=== PATIENT | female | born 1975 | race American Indian/Alaskan Native ===

== ENCOUNTER 2024-11-20 22:31 | Emergency (ER) | payer BC, OTHER ==
[~2024-11-20] VITALS: Ht 167.6 cm; Wt 184.0 kg
[~2024-11-20 22:31] MED LIST: ERGOCALCIF50000 UNIT PO; IBUPROFEN600 MG PO; NORCO 5-325 TA1 EACH PO; WELLBUTRIN XL300 MG PO; ZOLOFT100 MG PO
[2024-11-20] MEDS ORDERED: HYDROCHLOROTH12.5 M1 PO (23:04)
[2024-11-20] MEDS ORDERED: VENLAFAXINE HC150 MG PO (23:04)
[2024-11-20] MEDS ORDERED: HYDROCODON-ACE1 EA10 PO (23:04)
[2024-11-20] MEDS ORDERED: BUSPIRONE HCL15 MG PO (23:04)
[2024-11-20] MEDS ORDERED: VITAMIN D21250 MCG PO (23:05)
[2024-11-20] MEDS ORDERED: LORAZEPAM0.5 MG PO (23:05)
[2024-11-20] MEDS ORDERED: NITROFURANTOIN50 MG PO (23:05)
[2024-11-21] MEDS ORDERED: OXYCODONE/ACETAMINOPHEN 1 TAB HOME.PACK PO ONE ×2 (00:15→00:20)
[2024-11-21] MEDS ORDERED: OXYCODONE/APAP 10/325 TAB PO ONE (00:15)
[2024-11-21 00:20] VITALS: BP 148/74
[2024-11-21] MEDS ORDERED: OXYCODONE/APAP 10/325 TAB ONE (00:20)
== END 2024-11-21 00:20 | disposition home or self-care (01) ==
LOC: ED 22:31
DX: M23.91 Unspecified internal derangement of right knee (principal); I10 Essential (primary) hypertension; F17.200 Nicotine dependence, unspecified, uncomplicated; Z88.0 Allergy status to penicillin; Z79.899 Other long term (current) drug therapy
CPT/HCPCS: 73560; 99283